=== PATIENT | female | born 1960 | race Caucasian/White ===

== ENCOUNTER 2025-07-25 14:03 | Outpatient (CLI) | payer OTHER ==
[2025-07-25 15:42] LABS: #Basophils 0.06 10x3/uL (0.0-0.2); #Eosinophils 0.12 10x3/uL (0.0-0.7); #Monocytes 0.61 10x3/uL (0.11-0.59); #Neutrophils 4.40 10x3/uL (1.40-6.50); %Basophils 0.8 % (0.0-1.0); %Eosinophils 1.5 % (0.0-10.0); %Lymphocytes 32.9 % (21.0-51.0); %Monocytes 7.8 % (0.0-10.0); %Neutrophils 56.6 % (42.0-75.0); Hematocrit 42.3 % (36.0-47.0); Hemoglobin 13.6 g/dL (12.0-16.0); Mean Corpuscular Hemoglobin 31.6 pg (27.0-31.0); Mean Corpuscular Volume 98.4 fL (78.0-98.0); Platelet Count 301 10x3/uL (130-400); Red Blood Cell (RBC) Count 4.30 mill/uL (4.20-5.40); White Blood Cell (WBC) Count 7.78 10x3/uL (4.8-10.8)
[2025-07-25 15:58] LABS: Anion Gap 15 mmol/L (10-20); BUN (Urea Nitrogen) 13 mg/dL (9.8-20.1); Calc. Creatinine Clearance 0 mL/min (70-130); Calcium 9.6 mg/dL (7.8-10.44); Carbon Dioxide 23 mmol/L (23-31); Chloride 107 mmol/L (98-107); Glucose 118 mg/dL (80-115); Potassium 4.0 mmol/L (3.5-5.1); Sodium 141 mmol/L (136-145)
== END 2025-07-25 14:04 | disposition home or self-care (01) ==
LOC: LABBT 14:03
PROVIDERS: ATTEND Orthopaedic Surgery Hand Surgery
DX: Z01.818 Encounter for other preprocedural examination (principal); G56.01 Carpal tunnel syndrome, right upper limb; G56.11 Other lesions of median nerve, right upper limb
CPT/HCPCS: 80048; 85025; 93005; 93010

== ENCOUNTER 2025-07-29 05:42 | Day surgery (SDC) | payer OTHER ==
[2025-07-25 14:15] VITALS: BMI 29.9
[2025-07-29] MEDS ORDERED: CEFAZOLIN 2 GM VIAL ONE (06:16)
[2025-07-29] MEDS ORDERED: Bupivacaine 0.25% HCL 30 ML VIAL ONE (06:24)
[2025-07-29] MEDS ORDERED: Bacitracin Zinc Ointment 30 gm TUBE ONE (06:24)
[2025-07-29] MEDS ORDERED: PROPOFOL 20 ML ONE (06:51)
[2025-07-29] MEDS ORDERED: Lidocaine 1% PF 5 ML VIAL ONE (06:51)
[2025-07-29] MEDS ORDERED: Rocuronium Bromide 10 MG/ML (10ML VIAL) ONE (06:51)
[2025-07-29] MEDS ORDERED: Ondansetron PF 4 MG/2 ML Vial ONE ×2 (06:51→09:40)
[2025-07-29] MEDS ORDERED: fentaNYL PF 100 MCG/2 ML SYRINGE ONE (06:51)
[2025-07-29] MEDS ORDERED: Lidocaine 2% 6 ML (Jelly) SYR ONE (07:02)
[2025-07-29] MEDS ORDERED: SUCCINYLCHOLINE/SOD CL,ISO/PF 200 MG/10 ML SYRINGE FS ONE (07:07)
[2025-07-29] MEDS ORDERED: SUGAMMADEX SODIUM 200 MG/2 ML VIAL ONE (08:31)
[2025-07-29] MEDS ORDERED: Ketorolac Tromethamine 30 MG (1 mL) VIAL ONE (08:59)
[2025-07-29] MEDS ORDERED: diphenhydrAMINE 50 MG/ML VIAL ONE (09:50)
== END 2025-07-29 11:25 | disposition home or self-care (01) ==
LOC: SDC 05:42
PROVIDERS: ATTEND Orthopaedic Surgery Hand Surgery
PROC: 01N50ZZ Release Median Nerve, Open Approach (ICD-10-PCS; principal; 2025-07-29)
DX: G56.03 Carpal tunnel syndrome, bilateral upper limbs (principal); G56.13 Other lesions of median nerve, bilateral upper limbs; K21.9 Gastro-esophageal reflux disease without esophagitis; E78.5 Hyperlipidemia, unspecified; I10 Essential (primary) hypertension; J44.9 Chronic obstructive pulmonary disease, unspecified; Z79.899 Other long term (current) drug therapy; Z87.891 Personal history of nicotine dependence
CPT/HCPCS: 64708; 64721; A6223; J0665; J1100; J1200; J1885; J2250; J2405; J2704; J3010; J7620